=== PATIENT | male | born 1990 | race Two or more races ===

== ENCOUNTER 2020-10-04 21:20 | Emergency (ER) | payer OTHER ==
[2020-10-04] MEDS ORDERED: CEFAZOLIN PMX 1GM/50ML 50 ML IVPB ONE (21:30)
[2020-10-04] MEDS ORDERED: SODIUM CHLORIDE 0.9% 1,000ML IVBOLUS ONE (21:30)
[2020-10-04] MEDS ORDERED: MORPHINE SULFATE 4 MG/ML, 1ML IVPush PRN (21:30)
[2020-10-04] MEDS ORDERED: LIDOCAINE 2%, 20ML INFIL ONE (21:30)
[2020-10-04] MEDS ORDERED: ONDANSETRON 2MG/ML, 2ML IVPush ONE (21:30)
[2020-10-04] MEDS ORDERED: SODIUM CHLORIDE FLUSH 10ML SYR IVF ONE (21:30)
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
[2020-10-04 21:59] LABS: BASOPHILS % (AUTO) 1 % (0-1); EOSINOPHILS % (AUTO) 1 % (1-7); LYMPHOCYTES % (AUTO) 29 % (22-44); MEAN CORPUSCULAR HEMOGLOBIN 32.1 pg (27.5-34.5); MEAN CORPUSCULAR HGB CONC 34.3 g/dL (33.2-36.2); MEAN PLATELET VOLUME 8.2 fL (7.4-10.4); MONOCYTES % (AUTO) 10 % (2-9); NEUTROPHILS % (AUTO) 60 % (42-75); PLATELET COUNT 251 x10^3/uL (130-400); RED BLOOD COUNT 4.83 x10^6/uL (4.38-5.82)
[2020-10-04] MEDS ORDERED: PLEASE ENTER ALLERGIES MC SCH (22:00)
[2020-10-04] MEDS ORDERED: PLEASE ENTER HEIGHT AND WEIGHT MC SCH (22:00)
[2020-10-04 22:05] LABS: INTERNATIONAL NORMALIZED RATIO 0.95 (0.93-1.1); PROTHROMBIN TIME 10.2 Seconds (9.6-11.5)
--- NOTE | 2020-10-04 22:06 | NUR ---
PT TO CT AT THIS TIME
[2020-10-04] MEDS ORDERED: LIDOCAINE-MPF 1%, 5ML ONE (22:29)
[2020-10-04] MEDS ORDERED: OMNIPAQUE 350 MG/ML, 100ML BOTTLE ONE (22:30)
[2020-10-04] MEDS ORDERED: MORPHINE SULFATE 4 MG/ML, 1ML ONE (22:30)
[2020-10-04] MEDS ORDERED: CEFAZOLIN PMX 1GM/50ML 50 ML ONE (22:30)
--- NOTE | 2020-10-04 22:46 | NUR ---
ABX STARTED, PT BACK FROM CT,
--- NOTE | 2020-10-04 23:35 | NUR ---
DR KELLY AT BEDSIDE FOR LIDO ADMIN AND STAPLE PLACEMENT.
--- NOTE | 2020-10-05 01:00 | NUR ---
Patient is resting comfortably in bed. Bed in lowest, rails engaged, call light on lap. Vital Signs within normal limits. WCTM.
--- NOTE | 2020-10-05 02:10 | NUR ---
Patient is resting comfortably in bed. Bed in lowest, rails engaged, call light on lap. Vital Signs within normal limits. WCTM.
--- NOTE | 2020-10-05 02:20 | NUR ---
PT URINATED ON SELF, LINENS CHANGED AT THIS TIME, PT PROVIDED BLANKETS AND POSITIONED TO COMFORT
[2020-10-05 02:45] VITALS: BP 124/74
--- NOTE | 2020-10-05 03:10 | NUR ---
pt removed monitoring at this time, however still drowsy and unable to stay awake during conversations with rn
--- NOTE | 2020-10-05 03:30 | NUR ---
Patient is resting comfortably in bed. Bed in lowest, rails engaged, call light on lap. Vital Signs within normal limits. WCTM.
--- NOTE | 2020-10-05 04:35 | NUR ---
Patient/Caregiver given discharge instructions and they have confirmed that they understand the instructions. Patient ambulatory with steady gait. NAD, all questions answered appropriately, denies additional needs at this time. No personal belongings left in room after discharge.
== END 2020-10-05 04:41 | disposition home or self-care (01) ==
LOC: ED 10-05 04:00
DX: S51.811A Laceration without foreign body of right forearm, initial encounter (principal); S61.411A Laceration without foreign body of right hand, initial encounter; X58.XXXA Exposure to other specified factors, initial encounter; Y93.89 Activity, other specified; Y92.009 Unspecified place in unspecified non-institutional (private) residence as the place of occurrence of the external cause; Y99.8 Other external cause status
CPT/HCPCS: 12034; 12042; 36415; 73206; 80320; 85025; 85610; 85730; 86850; 86900; 96365; 99285; J0690; J7030; Q9967; G0480